=== PATIENT | female | born 1940 | race Caucasian/White ===

== ENCOUNTER 2017-07-27 09:54 | Day surgery (SDC) | payer MEDICARE, OTHER ==
[~2017-07-27 09:54] MED LIST: ASCO500 PO; CALCAVITDA PO; CYAN1000 PO; LOSA50 PO; MULVITMIND PO; ROSU5 PO; SPIR25 PO; ZOLP5 PO
[2017-07-27] MEDS ORDERED: METO25ER PO (10:44)
[2017-07-27] MEDS ORDERED: XARELTO20 MG (10:44)
== END 2017-07-27 22:53 | disposition home or self-care (01) ==
LOC: MHTC 09:54
PROC: 065P3ZZ Destruction of Right Saphenous Vein, Percutaneous Approach (ICD-10-PCS; principal; 2017-07-27)
PROC: 3E033TZ Introduction of Destructive Agent into Peripheral Vein, Percutaneous Approach (ICD-10-PCS; principal; 2017-07-27)
DX: I87.2 Venous insufficiency (chronic) (peripheral) (principal); I10 Essential (primary) hypertension; E78.5 Hyperlipidemia, unspecified; E11.9 Type 2 diabetes mellitus without complications; I48.0 Paroxysmal atrial fibrillation; R00.1 Bradycardia, unspecified; Z79.899 Other long term (current) drug therapy; Z95.1 Presence of aortocoronary bypass graft; Z96.649 Presence of unspecified artificial hip joint; Z79.01 Long term (current) use of anticoagulants; Z87.891 Personal history of nicotine dependence; Z88.2 Allergy status to sulfonamides
CPT/HCPCS: 36466; 36475; 99152; 99153; C1769; C1888; C1894; J0461; J1644; J2250; J2310; J3010; J7040

== ENCOUNTER 2019-04-03 11:50 | Day surgery (SDC) | payer MEDICARE, OTHER ==
[~2019-04-03] VITALS: Ht 160 cm; Wt 77.1 kg
[~2019-04-03 11:50] MED LIST changes: +B-122500 MCG SL; +METO25ER PO; +MYRBETRIQ25 MG PO; +ONE-DAILY MULT1 EACH PO; +Papaya1 EAC1 PO; +TRAZ50 PO; +VITAMIN D31000 UNI2 PO; +XARELTO20 MG
--- NOTE | 2019-04-03 13:37 | NUR ---
04/03/19 1337 Breonna Rivera SATS 97% ON RA.
== END 2019-04-03 14:00 | disposition home or self-care (01) ==
LOC: ORSCSDS 11:50
PROVIDERS: Internal Medicine Gastroenterology
PROC: 0DB88ZX Excision of Small Intestine, Via Natural or Artificial Opening Endoscopic, Diagnostic (ICD-10-PCS; principal; 2019-04-03 13:00)
PROC: 0DBM8ZX Excision of Descending Colon, Via Natural or Artificial Opening Endoscopic, Diagnostic (ICD-10-PCS; principal; 2019-04-03 13:00)
PROC: 0DB68ZX Excision of Stomach, Via Natural or Artificial Opening Endoscopic, Diagnostic (ICD-10-PCS; principal; 2019-04-03 13:00)
PROC: 0DBH8ZX Excision of Cecum, Via Natural or Artificial Opening Endoscopic, Diagnostic (ICD-10-PCS; principal; 2019-04-03 13:00)
DX: R19.5 Other fecal abnormalities (principal); Z86.010 Personal history of colon polyps; K57.30 Diverticulosis of large intestine without perforation or abscess without bleeding; Z80.0 Family history of malignant neoplasm of digestive organs; Z98.84 Bariatric surgery status; I10 Essential (primary) hypertension; E11.9 Type 2 diabetes mellitus without complications; E78.00 Pure hypercholesterolemia, unspecified; E78.5 Hyperlipidemia, unspecified; E66.9 Obesity, unspecified; Z68.32 Body mass index [BMI] 32.0-32.9, adult; Z79.01 Long term (current) use of anticoagulants; Z79.899 Other long term (current) drug therapy
CPT/HCPCS: 87081; 88305; J2704; J7120

== ENCOUNTER → 2019-05-05 | Outpatient (CLI) | payer MEDICARE, OTHER ==
[2019-05-06 14:03] LABS: Stool Occult Bld Immuno 1 Negative (NEGATIVE); Stool Occult Bld Immuno 2 Negative (NEGATIVE)
== END | disposition home or self-care (01) ==
LOC: LAB SHORT 17:46 → OLS 17:46 → LAB FUT 04-03 16:05
PROVIDERS: Internal Medicine Gastroenterology
DX: K57.90 Diverticulosis of intestine, part unspecified, without perforation or abscess without bleeding (principal); R19.5 Other fecal abnormalities; Z86.010 Personal history of colon polyps
CPT/HCPCS: 82274

== ENCOUNTER 2024-05-23 07:21 | Day surgery (SDC) | payer MEDICARE, OTHER ==
[~2024-05-23] VITALS: Ht 160 cm; Wt 76.3 kg
[~2024-05-23 07:21] MED LIST changes: +Balanced Salt Epinephrine Irrigation Solution 500 mL IR SCH; +Lidocaine HCl/Pf 1% 5 ML VIAL XX SCH; +Moxifloxacin HCL 0.5 MG/0.1 ML 0.4MLSYR RIGHTEYE SCH; +PHENYLEPHRINE\\TROPICAMIDE\\TETRACAINE OPHTHALMIC DILATING SOLN RIGHTEYE PRN; +Povidone-Iodine 450 DROP/30 ML Solution RIGHTEYE SCH
[2024-05-23] MEDS ORDERED: TEMAZEPAM1511 PO (08:18)
[2024-05-23] MEDS ORDERED: FentaNYL Citrate 50 MCG/ML 2 ML Injection ONE (08:27)
[2024-05-23] MEDS ORDERED: Midazolam HCl 1MG / ML 2ML Vial ONE (08:28)
[2024-05-23] MEDS ORDERED: Tetracaine HCl 0.5% Opth Soln 15 ml RIGHTEYE ONE (08:48)
[2024-05-23 09:12] VITALS: BP 149/72
== END 2024-05-23 09:29 | disposition home or self-care (01) ==
LOC: ORSCSDS 07:21
PROVIDERS: Student in an Organized Health Care Education/Training Program
PROC: 08RJ3JZ Replacement of Right Lens with Synthetic Substitute, Percutaneous Approach (ICD-10-PCS; principal; 2024-05-23 09:00)
DX: E11.36 Type 2 diabetes mellitus with diabetic cataract (principal); H25.811 Combined forms of age-related cataract, right eye; Z96.1 Presence of intraocular lens; H35.30 Unspecified macular degeneration; Z87.891 Personal history of nicotine dependence; E78.5 Hyperlipidemia, unspecified; Z98.84 Bariatric surgery status; Z79.01 Long term (current) use of anticoagulants; Z79.899 Other long term (current) drug therapy
CPT/HCPCS: J2250; J3010; V2632